=== PATIENT | male | born 1965 | race African-American/Black ===

== ENCOUNTER 2020-09-06 11:55 | Emergency (ER) | payer SELFPAY ==
[~2020-09-06] VITALS: Ht 177.8 cm; Wt 98.0 kg
[2020-09-06 12:11] LABS: HEMATOCRIT 42.7 % (39.0-50.0); HEMOGLOBIN 14.6 g/dl (14.0-18.0); IMMATURE GRANULOCYTES 0.3 % (0.0-5.0); MEAN CELL VOLUME 76.1 fL CALC (80.0-100.0); MEAN CORPUSCULAR HGB CONC 34.2 g/dL CAL (32.0-36.0); NEUT# 6.58 thou/uL (1.82-7.42); RED BLOOD COUNT 5.61 mill/uL (4.70-6.10); RED CELL DISTRI WIDTH 14.8 % (11.5-15.5)
[2020-09-06 12:31] LABS: ALBUMIN 4.9 g/dL (3.2-5.0); ALKALINE PHOSPHATASE 77 u/l (38-126); ANION GAP 12 (6-22 (CALC)); BILIRUBIN, TOTAL 0.5 mg/dL (0.0-1.4); BUN 12 mg/dL (9-20); BUN/CREATININE RATIO 12 (12-20 (CALC)); CARBON DIOXIDE 27 mmol/l (22-30); CHLORIDE 108 mmol/l (95-108); GFR > 60 ML/MIN (>=60 (CALC)); GFR FOR AFR.AMER. > 60 ML/MIN (>=60 (CALC)); POTASSIUM 4.2 mmol/l (3.5-5.1); SGOT/AST 25 u/l (17-59); SODIUM 142 mmol/l (137-146); TOTAL PROTEIN 8.3 g/dL (6.3-8.2)
[2020-09-06 12:51] VITALS: BP 177/87
== END 2020-09-06 12:52 | disposition short-term general hospital (02) | DRG 282 ==
LOC: ED 11:55
PROVIDERS: Family Medicine
DX: I21.3 ST elevation (STEMI) myocardial infarction of unspecified site (principal); I10 Essential (primary) hypertension

== ENCOUNTER 2021-10-25 12:16 | Emergency (ER) | payer OTHER ==
[~2021-10-25] VITALS: Ht 177.8 cm; Wt 92.0 kg
[2021-10-25 12:35] VITALS: BP 154/90
[2021-10-25] MEDS ORDERED: IBUPROFEN600 MG PO (13:51)
[2021-10-25 14:08] VITALS: BP 154/90
== END 2021-10-25 14:21 | disposition home or self-care (01) | DRG 552 ==
LOC: ED 12:16
DX: S16.1XXA Strain of muscle, fascia and tendon at neck level, initial encounter (principal); S39.012A Strain of muscle, fascia and tendon of lower back, initial encounter; S46.911A Strain of unspecified muscle, fascia and tendon at shoulder and upper arm level, right arm, initial encounter; I10 Essential (primary) hypertension; V13.4XXA Pedal cycle driver injured in collision with car, pick-up truck or van in traffic accident, initial encounter

== ENCOUNTER 2022-03-20 09:43 | Emergency (ER) | payer SELFPAY ==
[2022-03-20] VITALS (8 sets, daily range): BP systolic 180–206; BP diastolic 91–125
[~2022-03-20] VITALS: Ht 177.8 cm; Wt 94.1 kg
[~2022-03-20 09:43] MED LIST: IBUPROFEN600 MG PO
[2022-03-20 12:01] LABS: HEMATOCRIT 41.2 % (39.0-50.0); HEMOGLOBIN 14.3 g/dl (14.0-18.0); IMMATURE GRANULOCYTES 0.2 % (0.0-5.0); MEAN CORPUSCULAR HGB 26.4 pG CALC (26.0-32.0); MEAN CORPUSCULAR HGB CONC 34.7 g/dL CAL (32.0-36.0); NEUT# 2.94 thou/uL (1.82-7.42); RED BLOOD COUNT 5.42 mill/uL (4.70-6.10); RED CELL DISTRI WIDTH 14.5 % (11.5-15.5)
[2022-03-20 12:20] LABS: ALBUMIN 4.8 g/dL (3.2-5.0); ALKALINE PHOSPHATASE 81 u/l (38-126); ANION GAP 12 (6-22 (CALC)); BILIRUBIN, TOTAL 0.4 mg/dL (0.0-1.4); BUN 9 mg/dL (9-20); BUN/CREATININE RATIO 8 (12-20 (CALC)); CARBON DIOXIDE 28 mmol/l (22-30); CHLORIDE 104 mmol/l (95-108); CREATININE 1.1 mg/dL (0.7-1.3); GFR FOR AFR.AMER. > 60 ML/MIN (>=60 (CALC)); GFR OTHER RACES > 60 ML/MIN (>=60 (CALC)); POTASSIUM 4.1 mmol/l (3.5-5.1); SGOT/AST 33 u/l (17-59); SODIUM 139 mmol/l (137-146); TOTAL PROTEIN 8.3 g/dL (6.3-8.2)
[2022-03-20 13:17] LABS: URINE BILIRUBIN - DIPSTICK NEGATIVE (NEGATIVE); URINE BLOOD DIPSTICK NEGATIVE (NEGATIVE); URINE COLOR YELLOW; URINE GLUCOSE - DIPSTICK NEGATIVE (NEGATIVE); URINE KETONE NEGATIVE (NEGATIVE); URINE LEUK ESTERASE NEGATIVE (NEGATIVE); URINE PROTEIN - DIPSTICK NEGATIVE (NEG-TRACE); URINE SPECIFIC GRAVITY 1.015; URINE UROBILINOGEN - DIPSTICK 0.2 E.U./dL (0.2)
[2022-03-20 13:18] LABS: URINE NITRITE - DIPSTICK NEGATIVE (Negative)
== END 2022-03-20 12:50 | disposition left against medical advice (07) | DRG 556 ==
LOC: ED 09:43
PROVIDERS: Family Medicine
DX: M25.551 Pain in right hip (principal); M25.561 Pain in right knee; R07.81 Pleurodynia; I10 Essential (primary) hypertension; I25.2 Old myocardial infarction; T46.5X6A Underdosing of other antihypertensive drugs, initial encounter; Z91.128 Patient's intentional underdosing of medication regimen for other reason; Z91.19 Patient's noncompliance with other medical treatment and regimen; Z20.822 Contact with and (suspected) exposure to COVID-19

== ENCOUNTER 2022-07-01 16:17 | Emergency (ER) | payer BC ==
[~2022-07-01] VITALS: Ht 177.8 cm; Wt 95.0 kg
[2022-07-01 19:05] VITALS: BP 136/78
== END 2022-07-01 19:05 | disposition home or self-care (01) | DRG 605 ==
LOC: ED 16:17
DX: S61.217A Laceration without foreign body of left little finger without damage to nail, initial encounter (principal); V03.00XA Pedestrian on foot injured in collision with car, pick-up truck or van in nontraffic accident, initial encounter

== ENCOUNTER 2022-09-21 10:03 | Emergency (ER) | payer BC ==
[~2022-09-21] VITALS: Ht 177.8 cm; Wt 81.0 kg
[2022-09-21 10:16] VITALS: BP 190/108
[2022-09-21 10:30] VITALS: BP 170/100
[2022-09-21 10:34] VITALS: BP 172/110
[2022-09-21 11:38] VITALS: BP 148/108
[2022-09-21 11:48] VITALS: BP 148/108
== END 2022-09-21 11:48 | disposition left against medical advice (07) | DRG 552 ==
LOC: ED 10:03
DX: M54.2 Cervicalgia (principal); M54.9 Dorsalgia, unspecified; Z53.29 Procedure and treatment not carried out because of patient's decision for other reasons

== ENCOUNTER 2022-11-30 11:15 | Emergency (ER) | payer BC ==
[~2022-11-30] VITALS: Ht 177.8 cm; Wt 91.2 kg
[2022-11-30 11:26] VITALS: BP 155/92
[2022-11-30 11:30] VITALS: BP 156/93
[2022-11-30 12:22] LABS: BASO% 0.2 % (0-3); HEMOGLOBIN 12.8 g/dl (14.0-18.0); IMMATURE GRANULOCYTES 0.2 % (0.0-5.0); LYMPH% 18.9 % (15-41); MEAN CORPUSCULAR HGB 26.3 pG CALC (26.0-32.0); MEAN CORPUSCULAR HGB CONC 34.6 g/dL CAL (32.0-36.0); NEUT# 7.14 thou/uL (1.82-7.42); NEUT% 70.7 % (42-76); RED BLOOD COUNT 4.87 mill/uL (4.70-6.10); RED CELL DISTRI WIDTH 15.1 % (11.5-15.5)
[2022-11-30 12:42] LABS: ALBUMIN 4.2 g/dL (3.2-5.0); ALKALINE PHOSPHATASE 88 u/l (38-126); ANION GAP 11 (6-22 (CALC)); BILIRUBIN, TOTAL 0.1 mg/dL (0.2-1.3); BUN 15 mg/dL (9-20); BUN/CREATININE RATIO 13 (12-20 (CALC)); CARBON DIOXIDE 27 mmol/l (22-30); CHLORIDE 107 mmol/l (95-108); CREATININE 1.1 mg/dL (0.7-1.3); GFR FOR AFR.AMER. > 60 ML/MIN (>=60 (CALC)); GFR OTHER RACES > 60 ML/MIN (>=60 (CALC)); POTASSIUM 3.7 mmol/l (3.5-5.1); SGOT/AST 35 u/l (17-59); SODIUM 142 mmol/l (137-146); TOTAL PROTEIN 7.3 g/dL (6.3-8.2)
[2022-11-30] MEDS ORDERED: TRAMADOL HYDROC50 M1 PO (13:39)
[2022-11-30] MEDS ORDERED: PREDNISONE20 MG PO (13:39)
[2022-11-30] MEDS ORDERED: KEFLEX500 MG PO (13:39)
[2022-11-30 13:44] VITALS: BP 156/93
== END 2022-11-30 13:59 | disposition home or self-care (01) | DRG 918 ==
LOC: ED 11:15
PROVIDERS: Nurse Practitioner
DX: T65.891A Toxic effect of other specified substances, accidental (unintentional), initial encounter (principal); T22.60XA Corrosion of second degree of shoulder and upper limb, except wrist and hand, unspecified site, initial encounter; T24.501A Corrosion of first degree of unspecified site of right lower limb, except ankle and foot, initial encounter; I10 Essential (primary) hypertension; E11.9 Type 2 diabetes mellitus without complications

== ENCOUNTER 2024-01-01 08:21 | Emergency (ER) | payer OTHER ==
[~2024-01-01] VITALS: Ht 177.8 cm; Wt 93.0 kg
[2024-01-01] VITALS (13 sets, daily range): BP systolic 169–225; BP diastolic 88–124
[~2024-01-01 08:21] MED LIST changes: +KEFLEX500 MG PO; +METHOCARBAMOL500 MG PO; +PREDNISONE20 MG PO; +TRAMADOL HYDROC50 M1 PO
[2024-01-01] MEDS ORDERED: KETOROLAC TROMETHAMINE 15 MG/ML SDV IV ONE (08:40)
[2024-01-01 08:59] LABS: BASO% 0.3 % (0-3); EOS% 3.2 % (0-8); HEMATOCRIT 38.4 % (39.0-50.0); HEMOGLOBIN 13.4 g/dl (14.0-18.0); IMMATURE GRANULOCYTES 0.3 % (0.0-5.0); LYMPH% 25.1 % (15-41); MEAN CELL VOLUME 75.9 fL CALC (80.0-100.0); MEAN CORPUSCULAR HGB 26.5 pG CALC (26.0-32.0); MEAN CORPUSCULAR HGB CONC 34.9 g/dL CAL (32.0-36.0); MONO% 9.6 % (2-13); NEUT# 4.35 thou/uL (1.82-7.42); NEUT% 61.5 % (42-76); RED BLOOD COUNT 5.06 mill/uL (4.70-6.10); RED CELL DISTRI WIDTH 15.4 % (11.5-15.5)
[2024-01-01 09:22] LABS: ALBUMIN 4.4 g/dL (3.2-5.0); ALKALINE PHOSPHATASE 75 u/l (38-126); ANION GAP 8 (6-22 (CALC)); BUN 12 mg/dL (9-20); BUN/CREATININE RATIO 11 (12-20 (CALC)); CARBON DIOXIDE 25 mmol/l (22-30); CHLORIDE 112 mmol/l (95-108); CREATININE 1.2 mg/dL (0.7-1.3); ESTIMATED GFR 70 ML/MIN (>=90 (CALC)); LIPASE 56 u/l (23-300); POTASSIUM 3.7 mmol/l (3.5-5.1); SGOT/AST 30 u/l (17-59); SODIUM 142 mmol/l (137-146); TOTAL PROTEIN 8.1 g/dL (6.3-8.2)
[2024-01-01 09:23] LABS: BILIRUBIN, TOTAL 0.6 mg/dL (0.2-1.3)
[2024-01-01] MEDS ORDERED: LABETALOL HCL 100 MG/20 ML VIAL IV ONE (09:25)
[2024-01-01] MEDS ORDERED: hydrALAZINE HCL 20 MG/ML VIAL(1 ML) IV ONE (09:35)
[2024-01-01] MEDS ORDERED: amLODIPine BESYLATE 5 MG/TAB PO ONE (09:45)
[2024-01-01] MEDS ORDERED: NORVASC5 M1 PO (10:42)
[2024-01-01] MEDS ORDERED: NAPROXEN500 MG PO (10:42)
[2024-01-01] MEDS ORDERED: TERBINAFINE1 % EX (10:42)
== END 2024-01-01 11:18 | disposition home or self-care (01) | DRG 552 ==
LOC: ED 08:21
PROVIDERS: Family Medicine
DX: M54.2 Cervicalgia (principal); M54.6 Pain in thoracic spine; M54.50 Low back pain, unspecified; B35.9 Dermatophytosis, unspecified; I10 Essential (primary) hypertension; Z72.0 Tobacco use

== ENCOUNTER 2024-08-28 16:03 | Emergency (ER) | payer OTHER ==
[~2024-08-28] VITALS: Ht 177.8 cm; Wt 94.0 kg
[2024-08-28] VITALS (7 sets, daily range): BP systolic 172–210; BP diastolic 82–119
[~2024-08-28 16:03] MED LIST changes: +MECLIZINE12.5 M1 PO; +NAPROXEN500 MG PO; +NORVASC5 M1 PO; +TERBINAFINE1 % EX
[2024-08-28] MEDS ORDERED: ISOVUE-300 (Iopamidol) 100 ML SDV IV ONE ×2 (16:20)
[2024-08-28] MEDS ORDERED: SODIUM CHLORIDE 0.9% 1,000 ML IV ONE ×2 (16:25→16:35)
[2024-08-28] MEDS ORDERED: KETOROLAC TROMETHAMINE 30 MG/ML SDV IV ONE ×2 (16:25→16:35)
[2024-08-28] MEDS ORDERED: ORPHENADRINE CITRATE 30 MG/ML AMP IV ONE ×2 (16:25→16:35)
[2024-08-28 16:45] LABS: BASO% 0.4 % (0-3); HEMATOCRIT 39.6 % (39.0-50.0); HEMOGLOBIN 13.9 g/dl (14.0-18.0); IMMATURE GRANULOCYTES 0.1 % (0.0-5.0); LYMPH% 33.3 % (15-41); MEAN CELL VOLUME 75.3 fL CALC (80.0-100.0); MEAN CORPUSCULAR HGB 26.4 pG CALC (26.0-32.0); MEAN CORPUSCULAR HGB CONC 35.1 g/dL CAL (32.0-36.0); MONO% 7.2 % (2-13); NEUT# 4.09 thou/uL (1.82-7.42); RED BLOOD COUNT 5.26 mill/uL (4.70-6.10); RED CELL DISTRI WIDTH 14.6 % (11.5-15.5)
[2024-08-28 16:56] LABS: ALBUMIN 4.1 g/dL (3.2-5.0); CREATININE 1.3 mg/dL (0.7-1.3); POTASSIUM 3.6 mmol/l (3.5-5.1)
[2024-08-28 16:57] LABS: BILIRUBIN, TOTAL 0.3 mg/dL (0.2-1.3)
[2024-08-28] MEDS ORDERED: amLODIPine BESYLATE 5 MG/TAB PO ONE (18:05)
[2024-08-28] MEDS ORDERED: LOSARTAN Potassium 50 MG/TAB PO ONE (18:05)
[2024-08-29] MEDS ORDERED: LISINOPRIL40 MG PO (10:35)
[2024-08-29] MEDS ORDERED: NABUMETONE750 MG PO (10:35)
[2024-08-29] MEDS ORDERED: MEDDOSEPAK PO (10:35)
[2024-08-29] MEDS ORDERED: ORPHENADRINE100 MG PO (10:35)
== END 2024-08-28 18:38 | disposition left against medical advice (07) | DRG 103 ==
LOC: ED
PROVIDERS: Nurse Practitioner
DX: R51.9 Headache, unspecified (principal); M54.2 Cervicalgia; M54.50 Low back pain, unspecified; V19.40XA Pedal cycle driver injured in collision with unspecified motor vehicles in traffic accident, initial encounter; Z53.29 Procedure and treatment not carried out because of patient's decision for other reasons
CPT/HCPCS: J2360; Q9967

== ENCOUNTER 2024-08-29 08:28 | Emergency (ER) | payer OTHER ==
[2024-08-29] VITALS (8 sets, daily range): BP systolic 153–188; BP diastolic 90–102
[~2024-08-29] VITALS: Ht 177.8 cm; Wt 95.0 kg
[2024-08-29] MEDS ORDERED: KETOROLAC TROMETHAMINE 30 MG/ML SDV IM ONE (08:35)
[2024-08-29] MEDS ORDERED: CYCLOBENZAPRINE HCL 5 MG TAB PO ONE (08:40)
[2024-08-29] MEDS ORDERED: cloNIDine HCL 0.1 MG/TAB PO ONE (08:40)
[2024-08-29] MEDS ORDERED: ORPHENADRINE100 MG PO (10:35)
[2024-08-29] MEDS ORDERED: LISINOPRIL40 MG PO (10:35)
[2024-08-29] MEDS ORDERED: NABUMETONE750 MG PO (10:35)
[2024-08-29] MEDS ORDERED: MEDDOSEPAK PO (10:35)
== END 2024-08-29 11:25 | disposition home or self-care (01) | DRG 563 ==
LOC: ED 08:28
DX: S39.012A Strain of muscle, fascia and tendon of lower back, initial encounter (principal); I10 Essential (primary) hypertension; V19.40XA Pedal cycle driver injured in collision with unspecified motor vehicles in traffic accident, initial encounter
CPT/HCPCS: J1100